=== PATIENT | female | born 1940 | race Caucasian/White ===

== ENCOUNTER 2022-03-31 10:54 | Day surgery (SDC) | payer MEDICARE, BC ==
[2022-03-31 11:01] VITALS: BP 138/78; TEMP 98
[2022-03-31 12:42] LABS: SARS-CoV-2 NAA Rapid Test Not Detected (NotDetected)
== END 2022-03-31 15:10 | disposition home or self-care (01) ==
LOC: CSHSDC 10:54
PROVIDERS: ATTEND Internal Medicine Cardiovascular Disease
PROC: 5A2204Z Restoration of Cardiac Rhythm, Single (ICD-10-PCS; principal; 2022-03-31)
DX: I48.0 Paroxysmal atrial fibrillation (principal); I48.92 Unspecified atrial flutter; J45.909 Unspecified asthma, uncomplicated; E89.0 Postprocedural hypothyroidism; Z85.3 Personal history of malignant neoplasm of breast; Z79.01 Long term (current) use of anticoagulants; Z79.890 Hormone replacement therapy; Z79.899 Other long term (current) drug therapy; Z88.0 Allergy status to penicillin; Z88.1 Allergy status to other antibiotic agents; Z88.8 Allergy status to other drugs, medicaments and biological substances; Z20.822 Contact with and (suspected) exposure to COVID-19
CPT/HCPCS: 92960; 93005; U0002; 93010

== ENCOUNTER → 2024-07-03 | Day surgery (SDC) | payer MEDICARE, BC ==
[2024-06-29 11:15] VITALS: BMI 23.6
[~2024-07-03] MED LIST: PROPOFOL 20 ML ONE
[2024-07-03 10:41] VITALS: BP 174/80; TEMP 98.1
== END ==
LOC: CSHSDC 09:26
PROVIDERS: ATTEND Internal Medicine Cardiovascular Disease
PROC: 5A2204Z Restoration of Cardiac Rhythm, Single (ICD-10-PCS; principal; 2024-07-03)
DX: I48.0 Paroxysmal atrial fibrillation (principal); R00.1 Bradycardia, unspecified; J45.909 Unspecified asthma, uncomplicated; R94.31 Abnormal electrocardiogram [ECG] [EKG]; E03.9 Hypothyroidism, unspecified; Z88.0 Allergy status to penicillin; Z88.8 Allergy status to other drugs, medicaments and biological substances; Z79.899 Other long term (current) drug therapy; Z90.89 Acquired absence of other organs; Z90.12 Acquired absence of left breast and nipple; Z79.890 Hormone replacement therapy; Z79.51 Long term (current) use of inhaled steroids; Z88.2 Allergy status to sulfonamides
CPT/HCPCS: 92960; 93005; J2704; 93010

== ENCOUNTER 2025-09-20 12:52 | Emergency (ER) | payer MEDICARE ==
[2025-09-20 15:58] LABS: #Basophils 0.06 10x3/uL (0.0-0.2); #Eosinophils 0.20 10x3/uL (0.0-0.5); #Monocytes 0.47 10x3/uL (0.0-1.1); #Neutrophils 3.66 10x3/uL (1.5-8.4); %Basophils 1.0 % (0.0-2.0); %Eosinophils 3.4 % (0.0-6.0); %Lymphocytes 25.0 % (18.0-47.0); %Monocytes 8.0 % (0.0-10.0); %Neutrophils 62.4 % (40.0-75.0); Hematocrit 41.6 % (34.9-44.5); Hemoglobin 13.8 g/dL (12.0-15.5); Mean Corpuscular Hemoglobin 28.2 pg (27.0-33.0); Mean Corpuscular Volume 84.9 fL (81.6-98.3); Platelet Count 180 10x3/uL (150-450); Red Blood Cell (RBC) Count 4.90 10x6/uL (3.90-5.03); White Blood Cell (WBC) Count 5.87 10x3/uL (3.5-10.5)
[2025-09-20 16:16] LABS: ALT (SGPT) 19 U/L (Less than 34); AST (SGOT) 26 U/L (11-34); Albumin 3.7 g/dL (3.1-4.5); Alkaline Phosphatase 104 U/L (40-110); Anion Gap 15 mmol/L (10-20); BUN (Urea Nitrogen) 20 mg/dL (9.8-20.1); Bilirubin, Total 0.6 mg/dL (0.3-1.2); Calc. Creatinine Clearance 0 mL/min (70-130); Calcium 9.2 mg/dL (7.8-10.44); Carbon Dioxide 18 mmol/L (23-31); Chloride 111 mmol/L (98-107); Globulin 3.7 g/dL (2.4-3.5); Glucose 77 mg/dL (83-110); Potassium 4.0 mmol/L (3.5-5.1); Sodium 140 mmol/L (136-145)
[2025-09-20 16:22] LABS: Troponin I 0.023 ng/mL (< 0.028)
== END 2025-09-20 17:09 | disposition home or self-care (01) ==
LOC: CSHERS 12:52
DX: M54.6 Pain in thoracic spine (principal); I48.91 Unspecified atrial fibrillation; Z79.01 Long term (current) use of anticoagulants
CPT/HCPCS: 36415; 71045; 80053; 83880; 84484; 85025